=== PATIENT | female | born 1975 | race Caucasian/White ===

== ENCOUNTER 2017-06-08 12:48 | Emergency (ER) | payer MEDICAID, OTHER ==
--- NOTE | 2017-06-08 13:07 | Emergency Department Record ---
History of Present Illness - General Chief complaint: Female Urogenital Problem Stated complaint: PPOSSIBLE UTI Time Seen by Provider: 06/08/17 13:07 Source: Patient Mode of Arrival: Ambulatory Limitations: No limitations - History of Present Illness Initial comments: The patient is here due to burning with urination off and on for 3 days. She did see her PCP 3 days ago and got put on Keflex. Now she states she feels like she may still have the UTI. There is mild suprapubic pain but no back pain, fever, or chills. The patient was vomiting yesterday and the day prior but not today. MD Complaint: Dysuria Onset/Timin -: Days(s) Quality: Burning Consistency: Intermittent Improves with: None Worsens with: Urination Patient : No Associated Symptoms: Denies other symptoms - Related Data Home Medications Medication Instructions Recorded Confirmed Last Taken Cephalexin [Keflex] 500 mg PO TID 06/08/17 06/08/17 06/08/17 Cranberry 400 mg PO ASDIR 06/08/17 06/08/17 06/08/17 D-Mannose 1 gm PO DAILY 06/08/17 06/08/17 06/08/17 Oxybutynin Chloride [Oxybutynin 1 tab PO DAILY 06/08/17 06/08/17 06/08/17 Chloride ER] Previous Rx's Medication Instructions Recorded Ondansetron [Zofran Odt] 4 mg SL .Q4-6H PRN #12 tab.rapdis 06/08/17 Allergies Allergy/AdvReac Type Severity Reaction Status Date / Time amoxicillin Allergy RASH Verified 06/08/17 12:53 erythromycin base Allergy RASH Verified 06/08/17 12:53 iodine Allergy RASH Verified 06/08/17 12:53 Penicillins Allergy RASH Verified 06/08/17 12:53 povidone-iodine Allergy RASH Verified 06/08/17 12:53 [From Betadine] soap [From Betadine] Allergy RASH Verified 06/08/17 12:53 Travel Screening - Travel/Exposure Within Last 30 Days Have you traveled within the last 30 days?: No - Travel/Exposure Within Last Year Have you traveled outside the [place] in the last year?: No - Additonal Travel Details Have you been exposed to anyone with a communicable illness?: No - Travel Symptoms Symptom Screening: None Review of Systems Constitutional: Reports: Malaise. 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 negative: Tenderness - Respiratory Respiratory exam: Normal lung sounds bilaterally. negative: Respiratory distress - Cardiovascular Cardiovascular Exam: Regular rate, Normal rhythm, Normal heart sounds - GI/Abdominal GI/Abdominal exam: Soft, Normal bowel sounds. negative: Rebound, Rigid, Tenderness - Back Back exam: Denies: CVA tenderness (R), CVA tenderness (L) Course Vital Signs 06/08/17 12:57 Temperature 99.4 F Pulse Rate 92 H Respiratory 18 Rate Blood Pressure 152/98 Pulse Ox 98 - Reevaluation(s) Reevaluation #1: The patient is doing much better at this time. She denies any pain or discomfort. I did explain to her that her urine is normal. She is to continue the Keflex and is to use the Zofran for nausea and see her PCP if not better in 2-3 days. 06/08/17 14:50 Medical Decision Making - Lab Data Result diagrams: 06/08/17 13:45 06/08/17 13:45 Disposition Disposition: Discharge Clinical Impression: Dysuria Disposition: Home, Self-Care Condition: (1) Good Instructions: Dysuria (ED) Additional Instructions: Please continue the Keflex and use the Zofran for nausea. Please drink plenty of fluids. Please see your PCP if not better in 2 days. Return to the ER if worse. Prescriptions: Ondansetron [Zofran Odt] 4 mg SL .Q4-6H PRN #12 tab.rapdis PRN Reason: Nausea Forms: Patient Portal Access Time of Disposition: 14:52 Quality - Quality Measures Quality Measures: N/A - Blood Pressure Screening View Details: Yes Does Patient Have Any of the Following: No Blood Pressure Classification: Normal BP Reading Systolic Measurement: 116 Diastolic Measurement: 77 Screening for High Blood Pressure: < Normal BP, F/U Not Required > [G8783]
[2017-06-08 13:13] LABS: URINE APPEARANCE CLEAR; URINE BILIRUBIN NEGATIVE (NEGATIVE); URINE BLOOD TRACE-I (NEGATIVE); URINE COLOR YELLOW; URINE GLUCOSE (UA) NEGATIVE (NEGATIVE); URINE KETONE NEGATIVE (NEGATIVE); URINE LEUKOCYTE ESTERASE NEGATIVE (NEGATIVE); URINE NITRITE NEGATIVE (NEGATIVE); URINE PROTEIN NEGATIVE (NEGATIVE); URINE UROBILINOGEN 0.2 E.U./dL (0.20 - 1.00)
[2017-06-08 13:17] LABS: URINE BACTERIA NONE SEEN; URINE EPITHELIAL CELLS NONE SEEN (FEW); URINE RBC 0 - 2 (NONE SEEN); URINE WBC NONE SEEN (0-2/hpf)
[2017-06-08] MEDS: ONDANSETRON HCL IV 4 MG/2 ML VIAL IV ONE (13:32)
[2017-06-08] MEDS: 0.9 % SODIUM CHLORIDE 1,000 ML BAG IV ONE (13:32)
[2017-06-08 13:52] LABS: BASO % 0.3 % (0-6); EOS % 1.4 % (0-6); GRAN % 66.9 % (47-80); HEMOGLOBIN 15.6 gm/dl (11.6-16.0); LYMPH % 25.1 % (16-45); MEAN CELL VOLUME 90.7 fl (81-97); MEAN CORPUSCULAR HEMOGLOBIN 31.5 pg (27-33); MEAN CORPUSCULAR HGB CONC 34.7 g/dl (32-36); MEAN PLATELET VOLUME 10.5 fl (7.4-10.4); MONO % 6.3 % (0-9); PLATELET COUNT 253 K/uL (130-400); RED BLOOD COUNT 4.96 M/uL (3.80-5.40); RED CELL DISTRIBUTION WIDTH 13.1 % (11.5-14.5); WHITE BLOOD COUNT W/O DIFF 9.3 K/uL (4.2-12.2)
[2017-06-08 14:21] LABS: BLOOD UREA NITROGEN 9.6 mg/dL (12.6-42.6); CREATININE 0.5 mg/dL (0.5-0.9); EST GLOMERULAR FILTRATION RATE > 60 mL/min; GLUCOSE,RANDOM 125 mg/dL (74-109)
[2017-06-08] MEDS: KETOROLAC 30 MG/ML VIAL IVP ONE (14:36)
== END 2017-06-08 15:16 | disposition home or self-care (01) ==
LOC: ER 12:48
DX: R30.0 Dysuria (principal); R11.0 Nausea
CPT/HCPCS: 99284 ×2; 96374; 96375; 85025; 86140; 80048; 81001; J1885; J2405; J7030